=== PATIENT | female | born 1955 | race Two or more races ===

== ENCOUNTER 2020-10-21 13:47 | Inpatient (IN) | payer MEDICARE, OTHER ==
[~2020-10-21] VITALS: Ht 152.4 cm; Wt 52.2 kg
[2020-10-21] MEDS ORDERED: RISP1TAB97 PO (14:07)
[2020-10-21] MEDS ORDERED: LEVO75TA7 PO (14:07)
[2020-10-21] MEDS ORDERED: MIRT15TA7 PO (14:07)
[2020-10-21 14:30] LABS: *BILIRUBIN,URIN NEGATIVE (NEGATIVE); *BLOOD, URINE 1+ (NEGATIVE); *CLARITY,URINE SLIGHTLY CLOUDY (CLEAR); *COLOR,URINE YELLOW (YELLOW); *KETONES,URINE NEGATIVE (NEGATIVE); LEUKOCYTE ESTERASE ,URINE TRACE (NEGATIVE); NITRITE, URINE POSITIVE (NEGATIVE); UGLUCOSE NEGATIVE (NEGATIVE)
[2020-10-21 14:38] LABS: BACTERIA,URINE MANY /HPF (NONE SEEN); SQUAMOUS EPITHELIAL CELL,UR MODERATE /HPF (NONE SEEN); URINE AMORPHOUS PHOSPHATES MODERATE /HPF
[2020-10-21 14:40] LABS: *AMPHETAMINE, URINE NEGATIVE (NEGATIVE); *CANNABINOID, URINE POSITIVE (NEGATIVE); *COCCAINE, URINE NEGATIVE (NEGATIVE); *OPIATE, URINE NEGATIVE (NEGATIVE); *PHENCYCLIDINE SCREEN,URINE NEGATIVE (NEGATIVE)
[2020-10-21 14:45] LABS: BASOPHILS % (AUTO) 0.8 % (0.0-2.0); EOSINOPHILS # (AUTO) 0.1 K/uL (0.0-0.7); EOSINOPHILS % (AUTO) 1.7 % (0.0-7.0); HEMATOCRIT 36.8 % (31.2-41.9); HEMOGLOBIN 11.8 g/dL (10.9-14.3); LYMPHOCYTES # (AUTO) 1.1 K/uL (20.0-40.0); LYMPHOCYTES % (AUTO) 22.8 % (20.5-51.5); MEAN CORPUSCULAR HEMOGLOBIN 28.7 uug (24.7-32.8); MEAN CORPUSCULAR HGB CONC 32 g/dL (32.3-35.6); MEAN CORPUSCULAR VOLUME 89.3 fL (75.5-95.3); MONOCYTES # (AUTO) 0.4 K/uL (2.0-10.0); MONOCYTES % (AUTO) 8.6 % (0.0-11.0); NEUTROPHILS # (AUTO) 3.2 K/uL (1.8-8.9); NEUTROPHILS % (AUTO) 66.1 % (38.5-71.5); PLATELET COUNT (AUTO) 269 K/uL (179-408); RED BLOOD CELL COUNT(AUTO) 4.11 MIL/uL (3.63-4.92); WHITE BLOOD COUNT (AUTO) 4.8 K/uL (3.8-11.8)
[2020-10-21 14:57] LABS: ETHANOL < 3 MG/DL (0-0)
[2020-10-21 14:58] LABS: ALANINE AMINOTRANSFERASE 21 U/L (14-59); ALKALINE PHOSPHATASE 102 U/L (50-136); ASPARTATE AMINOTRANSFERASE 17 U/L (15-37); BILIRUBIN,DIRECT 0.1 mg/dL (0.0-0.2); BILIRUBIN,TOTAL 0.4 mg/dL (0.2-1.0); CARBON DIOXIDE 34 mmol/L (21-32); CHLORIDE 104 mmol/L (98-107); CREATININE 0.8 mg/dL (0.6-1.3); GLUCOSE 118 mg/dL (74-106); POTASSIUM 3.4 mmol/L (3.5-5.1); TOTAL PROTEIN, SERUM 6.9 g/dL (6.4-8.2); UREA NITROGEN, BLOOD 14 mg/dL (7-18)
[2020-10-21 14:59] LABS: ACETAMINOPHEN < 2.0 ug/mL (10-30)
[2020-10-21] MEDS ORDERED: CEFTRIAXONE 1 G in IV DEXTROSE 5% 50 ML IV ONE (15:15)
[2020-10-21 15:19] LABS: THYROID STIMULATING HORMONE 1.242 mIU/mL (0.358-3.740)
[2020-10-21] MEDS ORDERED: IV NS 1000 ML 1,000 ML IV ONE (15:30)
[2020-10-21] MEDS ORDERED: CEFTRIAXONE 1 G VIAL ONE (15:39)
[2020-10-21] MEDS ORDERED: HYDROCODONE/APAP 5-325MG TABLET PO PRN (17:30)
[2020-10-21] MEDS ORDERED: MAGNESIUM HYDROXIDE 30 ML LIQUID UDC PO PRN (17:30)
[2020-10-21] MEDS ORDERED: ONDANSETRON 4 MG/2 ML VIAL IV PRN (17:30)
[2020-10-21] MEDS ORDERED: Z GUARD REMEDY PASTE 57 GM TUBE TOP PRN (17:30)
--- NOTE | 2020-10-21 18:30 | NUR ---
Patient received on [facility], no sign of distress noted. Patient is stable. Initial vitals taken and belonging list done. Picture taken of the sacrum. Patient is on room air. Patient is Serbian speaking. Safety precautions are in place. Will endorse to the oncoming nurse.
[2020-10-21] MEDS ORDERED: POTASSIUM CHLORIDE 20 MEQ TAB.PRT.SR PO ONE (18:36)
[2020-10-21 18:40] VITALS: BP 133/77
[2020-10-21 20:00] VITALS: BP 113/64
[2020-10-21] MEDS: IV NS 1000 ML 1,000 ML IV PRN (20:30)
[2020-10-22 04:00] VITALS: BP 129/76
[2020-10-22] MEDS: ACETAMINOPHEN 325 MG TABLET PO PRN ×2 (05:09→20:35)
[2020-10-22 05:52] LABS: BASOPHILS % (AUTO) 0.8 % (0.0-2.0); EOSINOPHILS # (AUTO) 0.1 K/uL (0.0-0.7); EOSINOPHILS % (AUTO) 2.8 % (0.0-7.0); HEMATOCRIT 35.8 % (31.2-41.9); HEMOGLOBIN 11.5 g/dL (10.9-14.3); LYMPHOCYTES # (AUTO) 1.1 K/uL (20.0-40.0); LYMPHOCYTES % (AUTO) 27.2 % (20.5-51.5); MEAN CORPUSCULAR HEMOGLOBIN 28.5 uug (24.7-32.8); MEAN CORPUSCULAR HGB CONC 32 g/dL (32.3-35.6); MEAN CORPUSCULAR VOLUME 89.3 fL (75.5-95.3); MONOCYTES # (AUTO) 0.3 K/uL (2.0-10.0); MONOCYTES % (AUTO) 7.3 % (0.0-11.0); NEUTROPHILS # (AUTO) 2.4 K/uL (1.8-8.9); NEUTROPHILS % (AUTO) 61.9 % (38.5-71.5); PLATELET COUNT (AUTO) 268 K/uL (179-408); RED BLOOD CELL COUNT(AUTO) 4.02 MIL/uL (3.63-4.92); WHITE BLOOD COUNT (AUTO) 3.9 K/uL (3.8-11.8)
[2020-10-22] MEDS: LEVOTHYROXINE SODIUM 75 MCG TABLET PO SCH (06:04)
[2020-10-22 06:06] LABS: CREATININE 0.8 mg/dL (0.6-1.3); MAGNESIUM 1.8 mg/dL (1.8-2.4); PHOSPHOROUS 2.2 mg/dL (2.5-4.9); POTASSIUM 3.9 mmol/L (3.5-5.1)
--- NOTE | 2020-10-22 06:25 | NUR ---
Pt slept throughout the night. Around 0530H patient woke up and began saying profanities in Nauruan. Pt does not seem to be agitated or in distress. Patient had facial grimace and was given Tylenol. No SOB noted. Pt does not appear to be in distress at this time. IV site is intact and patient, fluids running per order. Bed is locked and in lowest position, alarm is on and call light is within reach. No other issues or concern at this time, will endorse to day shift.
[2020-10-22] MEDS: IV NS 1000 ML 1,000 ML IV PRN ×2 (09:26→23:32)
[2020-10-22 11:19] VITALS: BP 101/74
[2020-10-22] MEDS: CEFTRIAXONE 1 G in IV DEXTROSE 5% 50 ML IV SCH (15:18)
[2020-10-22] MEDS ORDERED: NEUTRA PHOS PACKET PO ONE (15:30)
[2020-10-22 15:54] VITALS: BP 106/69
--- NOTE | 2020-10-22 19:18 | NUR ---
Patient AOx1. on room air. no signs of acute distress. Patient has R hand #20 gauge IV access with NS running at 75cc/hr. Compliant with medications and care. safety and comfort measures provided. will endorse to incoming shift.
[2020-10-22 20:25] VITALS: BP 121/74
[2020-10-23 05:35] VITALS: BP 131/75
[2020-10-23] MEDS: LEVOTHYROXINE SODIUM 75 MCG TABLET PO SCH (06:21)
--- NOTE | 2020-10-23 06:36 | NUR ---
Pt slept throughout the night. Does not appear to be in distress at this time. Bed is locked and in lowest position. Call light within reach. IV site is patent. Tolerated all medications well. No other issues or concerns at this time, will endorse to day shift.
[2020-10-23 07:07] LABS: CREATININE 0.8 mg/dL (0.6-1.3); PHOSPHOROUS 3.1 mg/dL (2.5-4.9); POTASSIUM 3.8 mmol/L (3.5-5.1)
--- NOTE | 2020-10-23 07:25 | NUR ---
Received pt in bed sleeping. On room air saturating at 96% no s/s of acute distress. pt is Croatian speaking Aox1/2. No complaints of discomfort. Safety measures in place. Call light in reach. Will continue to monitor.
[2020-10-23 11:30] VITALS: BP 122/70
[2020-10-23] MEDS: CEFTRIAXONE 1 G in IV DEXTROSE 5% 50 ML IV SCH (15:54)
[2020-10-23 16:00] VITALS: BP 123/74
--- NOTE | 2020-10-23 18:53 | NUR ---
Pt is in bed resting on room air saturating at 97%. No S/S of acute distress. pt is mongolian speaking AOx2. All Meds given as ordered. Safety measures in place bed in lowest postiton call light in reach. Will endorse to oncoming nurse
[2020-10-23 20:00] VITALS: BP 133/78
--- NOTE | 2020-10-23 20:00 | NUR ---
RECEIVED PATIENT ASLEEP IN BED. EASILY AROUSABLE. A/O X2. VS WNL. H/L INTACT AND PATENT, NOTED TO RIGHT HAND. DENIES PAIN OR DISCOMFORT. NO RESP. DISTRESS NOTED. BED ALARM ON. CALL LIGHT IN REACH. ALL NEEDS ATTENDED. WILL CONTINUE TO MONITOR AND ASSESS.
[2020-10-24 00:03] VITALS: BP 120/65
--- NOTE | 2020-10-24 05:57 | NUR ---
PATIENT AWAKE IN BED. SLEPT WELL THROUGHOUT THE NIGHT. VS WNL. CALL LIGHT IN REACH. ALL NEEDS ATTENDED. WILL CONTINUE TO MONITOR AND ASSESS.
[2020-10-24] MEDS: LEVOTHYROXINE SODIUM 75 MCG TABLET PO SCH (06:15)
--- NOTE | 2020-10-24 07:30 | NUR ---
Received patient in bed awake, alert and oriented times 1. No sign of distress noted. Patient is Grenadian speaking. Patient is saturating well on room air. Safety precautions are in place. Will endorse to the next shift.
[2020-10-24 11:30] VITALS: BP 117/68
[2020-10-24] MEDS ORDERED: CEFT1VIA15 IV (13:19)
[2020-10-24] MEDS ORDERED: MAGN400O6 PO (13:19)
[2020-10-24] MEDS ORDERED: ACET325T53 PO (13:19)
[2020-10-24] MEDS ORDERED: ACID1TAB4 PO (13:19)
[2020-10-24] MEDS ORDERED: MULT-594 PO (13:19)
[2020-10-24 15:51] VITALS: BP 101/54
[2020-10-24] MEDS: CEFTRIAXONE 1 G in IV DEXTROSE 5% 50 ML IV SCH (16:00)
--- NOTE | 2020-10-24 18:52 | NUR ---
Patient discharge to Center at [facility]. No sign of distress noted. ID band removed. left IV in because patient has to continue Rocephin antibiotics. All paperwork sent with patients including belongings. All medications given as ordered.
== END 2020-10-24 18:50 | DRG 689 ==
LOC: ER 13:53 → MEDSURG3 18:19
PROVIDERS: ADMIT Internal Medicine; ATTEND Internal Medicine
DX: N39.0 Urinary tract infection, site not specified (principal); G92 Toxic encephalopathy; E86.0 Dehydration; E87.6 Hypokalemia; E03.9 Hypothyroidism, unspecified; F03.90 Unspecified dementia, unspecified severity, without behavioral disturbance, psychotic disturbance, mood disturbance, and anxiety; F20.9 Schizophrenia, unspecified; R62.7 Adult failure to thrive; F29 Unspecified psychosis not due to a substance or known physiological condition; R53.1 Weakness; B96.89 Other specified bacterial agents as the cause of diseases classified elsewhere; Z20.822 Contact with and (suspected) exposure to COVID-19; Z68.22 Body mass index [BMI] 22.0-22.9, adult
CPT/HCPCS: 36415; 70030-TC; 71045; 83605; 83735; 84100; 84443; 85025; 87077; 87086; 93005; A4663; G0378; G0480; J0696; J7030; J7060

== ENCOUNTER 2021-07-19 17:20 | Inpatient (IN) | payer MEDICARE, OTHER ==
[~2021-07-19] VITALS: Ht 152.4 cm; Wt 54.4 kg
[~2021-07-19 17:20] MED LIST: ACET325T53 PO; ACID1TAB4 PO; CEFT1VIA15 IV; LEVO75TA7 PO; MAGN400O6 PO; MIRT-93 PO; MULT-594 PO; RISP1TAB97 PO
--- NOTE | 2021-07-19 18:10 | NUR ---
PT IS IN ROOM #1A. DR CHEN EVALUATED THE PT.
[2021-07-19] MEDS ORDERED: GABA-532 PO (18:13)
[2021-07-19] MEDS ORDERED: PSYLLIUM POWDER PO (18:13)
[2021-07-19] MEDS ORDERED: NA P133E RC (18:13)
[2021-07-19] MEDS ORDERED: LORA-258 PO (18:13)
[2021-07-19] MEDS ORDERED: MELO7.5T12 PO (18:13)
[2021-07-19] MEDS ORDERED: LACT1TAB12 PO (18:13)
[2021-07-19] MEDS ORDERED: POLY17PO4 PO (18:13)
[2021-07-19] MEDS ORDERED: LEVO75TA7 PO (18:13)
[2021-07-19] MEDS ORDERED: MAG355OR18 PO (18:13)
[2021-07-19] MEDS ORDERED: MELA3TAB41 PO (18:13)
[2021-07-19] MEDS ORDERED: DOCU100C36 PO (18:13)
[2021-07-19] MEDS ORDERED: DIVA250T4 PO (18:13)
[2021-07-19] MEDS ORDERED: ATOR10TA PO (18:13)
[2021-07-19] MEDS ORDERED: IV NORMAL SALINE 1000 ML BAG IV ONE (19:00)
[2021-07-19 19:16] LABS: HEMATOCRIT 34.2 % (31.2-41.9); MEAN CORPUSCULAR HEMOGLOBIN 30.8 uug (24.7-32.8); MEAN CORPUSCULAR VOLUME 91.3 fL (75.5-95.3); PLATELET COUNT (AUTO) 199 K/uL (179-408)
[2021-07-19 19:22] LABS: CREATININE 0.9 mg/dL (0.6-1.3); POTASSIUM 3.5 mmol/L (3.5-5.1)
[2021-07-19 19:28] LABS: BILIRUBIN,DIRECT 0.1 mg/dL (0.0-0.2); BILIRUBIN,TOTAL 0.3 mg/dL (0.2-1.0); TOTAL PROTEIN, SERUM 7.3 g/dL (6.4-8.2)
[2021-07-19 19:40] LABS: LYMPHOCYTES % (MANUAL) 14 % (20-40); MONOCYTES % (MANUAL) 17 % (2-10); NEUTROPHILS % (MANUAL) 69 % (42-75)
--- NOTE | 2021-07-19 20:48 | NUR ---
covid positive results lab has called. call to [employer] for Dr. Jason.
--- NOTE | 2021-07-19 20:58 | NUR ---
call placed to [facility] weatherization crew leader for Dr. Jason. Dr. Dodson is paged.
[2021-07-19] MEDS ORDERED: IV NS 1000 ML 1,000 ML IV ONE (21:00)
--- NOTE | 2021-07-19 21:08 | NUR ---
Dr. Dodson called back for Dr. Jason.
[2021-07-19] MEDS ORDERED: DEXAMETHASONE SOD PHOSPHATE 4 MG INJ IM ONE (21:15)
[2021-07-19] MEDS ORDERED: FLEET ENEMA 133 ML BOTTLE RC PRN (21:30)
[2021-07-19] MEDS ORDERED: DEXAMETHASONE SOD PHOSPHATE 4 MG INJ IV ONE (21:30)
[2021-07-19] MEDS ORDERED: ACETAMINOPHEN 325 MG TABLET-SA PATIENTS-PAIN ONLY PO PRN (21:30)
[2021-07-19] MEDS ORDERED: MAGNESIUM HYDROXIDE 30 ML LIQUID UDC PO PRN (21:30)
[2021-07-19] MEDS ORDERED: DEXAMETHASONE SOD PHOSPHATE 4 MG INJ ONE (21:38)
[2021-07-19] MEDS ORDERED: ALBUTEROL SULFATE 8 GM HFA.AER.AD IH PRN (21:45)
[2021-07-19] MEDS ORDERED: ONDANSETRON 4 MG/2 ML VIAL IV PRN (21:45)
[2021-07-19] MEDS: CEFTRIAXONE 1 G in IV DEXTROSE 5% 50 ML IV SCH (23:10)
[2021-07-19] MEDS ORDERED: CEFTRIAXONE /D5W 50ML IVPB **ER PYXIS IV ONE (23:11)
--- NOTE | 2021-07-20 00:29 | NUR ---
pt has been yelling out confused, yelling what appears to be curse words in Pashto. Attempted to calm pateint reorient provided food and drink to the patient.
[2021-07-20] MEDS ORDERED: diphenhydrAMINE 50 MG/1 ML VIAL IV ONE (00:30)
[2021-07-20] MEDS ORDERED: HALOPERIDOL LACTATE 5 MG/1 ML VIAL IV ONE (00:30)
[2021-07-20] MEDS ORDERED: HALOPERIDOL LACTATE 5 MG/1 ML VIAL ONE (00:40)
[2021-07-20] MEDS ORDERED: diphenhydrAMINE 50 MG/1 ML VIAL ONE (00:40)
--- NOTE | 2021-07-20 01:03 | NUR ---
pt is more calm and arousalbe pt previously receive haldol and benadryl for agitation.
--- NOTE | 2021-07-20 02:51 | NUR ---
pt placed in hospital bed. torrez cath inserted to obtain urine sample.
[2021-07-20 03:22] LABS: *BILIRUBIN,URIN NEGATIVE (NEGATIVE); *BLOOD, URINE 2+ (NEGATIVE); *CLARITY,URINE CLEAR (CLEAR); *COLOR,URINE YELLOW (YELLOW); *KETONES,URINE NEGATIVE (NEGATIVE); *UROBILINOGEN,URINE 0.2 E.U./dl (NORMAL); LEUKOCYTE ESTERASE ,URINE NEGATIVE (NEGATIVE); NITRITE, URINE NEGATIVE (NEGATIVE); PH,URINE 6.5 (5.0-8.0); UGLUCOSE NEGATIVE (NEGATIVE)
[2021-07-20 03:34] LABS: BACTERIA,URINE NONE SEEN /HPF (NONE SEEN); SQUAMOUS EPITHELIAL CELL,UR FEW /HPF (NONE SEEN); WBC,URINE 0-3 /HPF (0-3)
--- NOTE | 2021-07-20 04:42 | NUR ---
call placed to [facility] regarding blood pressure low 90's, pt arouses easily denies pain.
--- NOTE | 2021-07-20 04:52 | NUR ---
New order from Radha ARZATE for ivf ns at 75 ml per hour.
[2021-07-20] MEDS: IV NS 1000 ML 1,000 ML IV PRN ×2 (05:06→17:40)
--- NOTE | 2021-07-20 07:30 | NUR ---
PATIENT RECEIVED IN BED NO S/S ANY DISTRESS.
[2021-07-20] MEDS: PANTOPRAZOLE SODIUM 40 MG TABLET.DR PO SCH (07:43)
[2021-07-20] MEDS: LEVOTHYROXINE SODIUM 75 MCG TABLET PO SCH (07:43)
[2021-07-20] MEDS ORDERED: LEVOTHYROXINE SODIUM 75 MCG TABLET ONE (07:46)
[2021-07-20] MEDS ORDERED: PANTOPRAZOLE SODIUM 40 MG TABLET.DR PO ONE (07:47)
[2021-07-20] MEDS: CULTURELLE CAPSULE PO SCH (08:18)
[2021-07-20] MEDS: MULTIVITAMINS,THERAPEUTIC TABLET PO SCH (08:18)
[2021-07-20] MEDS: MELOXICAM 7.5 MG TABLET PO SCH (08:18)
[2021-07-20] MEDS: DIVALPROEX 250 MG TABLET.DR PO SCH ×3 (08:27→16:33)
[2021-07-20] MEDS: MIRALAX 17 GM POWD.PACK PO SCH (08:27)
[2021-07-20] MEDS: GABAPENTIN 300 MG CAPSULE PO SCH ×3 (08:27→16:33)
[2021-07-20] MEDS ORDERED: ENOXAPARIN SODIUM 40 MG/0.4 ML DISP.SYRIN SQ ONE (08:32)
[2021-07-20] MEDS ORDERED: DIVALPROEX 250 MG TABLET.DR PO ONE ×3 (08:32→16:38)
[2021-07-20] MEDS ORDERED: DEXAMETHASONE SOD PHOSPHATE 10 MG INJ ONE (08:33)
[2021-07-20] MEDS ORDERED: GABAPENTIN 300 MG CAPSULE ONE ×3 (08:33→16:38)
[2021-07-20] MEDS ORDERED: MIRALAX 17 GM POWD.PACK ONE (08:33)
[2021-07-20] MEDS: ENOXAPARIN SODIUM 40 MG/0.4 ML DISP.SYRIN SQ SCH (08:48)
[2021-07-20] MEDS: DEXAMETHASONE SOD PHOSPHATE 4 MG INJ IV SCH (08:57)
--- NOTE | 2021-07-20 09:30 | NUR ---
PATIENT ASSISTED WITH BREAKFAST 100%.
--- NOTE | 2021-07-20 10:30 | NUR ---
PATIENT IN BED ASLEEP.
[2021-07-20 12:15] LABS: HEMATOCRIT 31.8 % (31.2-41.9); MEAN CORPUSCULAR HEMOGLOBIN 30.9 uug (24.7-32.8); MEAN CORPUSCULAR VOLUME 92.4 fL (75.5-95.3); PLATELET COUNT (AUTO) 178 K/uL (179-408)
[2021-07-20 12:50] LABS: THYROID STIMULATING HORMONE 0.19 mIU/mL (0.358-3.740)
[2021-07-20 12:56] LABS: BILIRUBIN,TOTAL 0.2 mg/dL (0.2-1.0); CREATININE 0.8 mg/dL (0.6-1.3); MAGNESIUM 2.2 mg/dL (1.8-2.4); PHOSPHOROUS 2.9 mg/dL (2.5-4.9); POTASSIUM 4.1 mmol/L (3.5-5.1); TOTAL PROTEIN, SERUM 6.6 g/dL (6.4-8.2)
[2021-07-20] MEDS: LORAZEPAM 0.5 MG TABLET PO PRN (13:43)
[2021-07-20] MEDS ORDERED: LORAZEPAM 0.5 MG TABLET ONE (13:51)
[2021-07-20] MEDS: ZIPRASIDONE MESYLATE 20 MG VIAL IM PRN (14:10)
[2021-07-20] MEDS ORDERED: ZIPRASIDONE MESYLATE 20 MG VIAL IM ONE (14:19)
--- NOTE | 2021-07-20 16:09 | NUR ---
PATIENT MOVED TO ROOM 02A.
[2021-07-20] MEDS ORDERED: DOCUSATE SODIUM 100 MG CAPSULE PO ONE (21:58)
[2021-07-20] MEDS ORDERED: MELATONIN 3 MG TABLET ONE (21:59)
[2021-07-20] MEDS ORDERED: CEFTRIAXONE /D5W 50ML IVPB **ER PYXIS IV ONE (22:11)
[2021-07-20] MEDS: MELATONIN 3 MG TABLET PO SCH (22:36)
[2021-07-20] MEDS: DOCUSATE SODIUM 100 MG CAPSULE PO SCH (22:36)
[2021-07-20] MEDS: ATORVASTATIN 10 MG TABLET PO SCH (22:36)
[2021-07-20] MEDS: CEFTRIAXONE 1 G in IV DEXTROSE 5% 50 ML IV SCH (22:36)
[2021-07-21] MEDS: LEVOTHYROXINE SODIUM 75 MCG TABLET PO SCH (07:00)
[2021-07-21] MEDS: PANTOPRAZOLE SODIUM 40 MG TABLET.DR PO SCH (07:00)
--- NOTE | 2021-07-21 08:00 | NUR ---
Patient received in bed no s/s any distress covid 19 precautions done.
[2021-07-21] MEDS ORDERED: PANTOPRAZOLE SODIUM 40 MG TABLET.DR PO ONE (08:23)
[2021-07-21] MEDS ORDERED: LEVOTHYROXINE SODIUM 75 MCG TABLET ONE (08:23)
[2021-07-21] MEDS: MELOXICAM 7.5 MG TABLET PO SCH (08:24)
[2021-07-21] MEDS: CULTURELLE CAPSULE PO SCH (08:24)
[2021-07-21] MEDS: DIVALPROEX 250 MG TABLET.DR PO SCH ×3 (08:24→17:24)
[2021-07-21] MEDS: GABAPENTIN 300 MG CAPSULE PO SCH ×3 (08:24→17:25)
[2021-07-21] MEDS: MIRALAX 17 GM POWD.PACK PO SCH (08:24)
[2021-07-21] MEDS: MULTIVITAMINS,THERAPEUTIC TABLET PO SCH (08:24)
[2021-07-21] MEDS: ENOXAPARIN SODIUM 40 MG/0.4 ML DISP.SYRIN SQ SCH (08:25)
[2021-07-21] MEDS ORDERED: ENOXAPARIN SODIUM 40 MG/0.4 ML DISP.SYRIN SQ ONE (08:27)
[2021-07-21] MEDS ORDERED: DIVALPROEX 250 MG TABLET.DR PO ONE ×3 (08:28→17:32)
[2021-07-21] MEDS ORDERED: GABAPENTIN 300 MG CAPSULE ONE ×3 (08:28→17:32)
[2021-07-21] MEDS ORDERED: MIRALAX 17 GM POWD.PACK ONE (08:28)
[2021-07-21] MEDS: IV NS 1000 ML 1,000 ML IV PRN ×2 (09:00→22:00)
[2021-07-21] MEDS ORDERED: DEXAMETHASONE SOD PHOSPHATE 10 MG INJ ONE (09:06)
[2021-07-21] MEDS: DEXAMETHASONE SOD PHOSPHATE 4 MG INJ IV SCH (09:07)
--- NOTE | 2021-07-21 12:00 | NUR ---
Patient is resting comfortably in bed with eyes closed.
--- NOTE | 2021-07-21 13:00 | NUR ---
Patient repositioned cleaned x1 small BM.
--- NOTE | 2021-07-21 17:30 | NUR ---
Patient assisted with meal 80% aspiration precautions done.
[2021-07-21 18:47] VITALS: BP 112/67
--- NOTE | 2021-07-21 19:03 | NUR ---
ADMISSION NOTE: Patient admitted from ER via hospital bed at 1845 accompanied by nursing staff to room 318 as Tele patient. Patient is alert and oriented x2. Patient has peripheral IV in right AC 20 g which is infusing NS. IV site is patent and intact. Patient's oxygen saturation 96% on RA. Patient denies SOB, chest pain, difficulty breathing, and cough. Noted with torrez catheter, draining clear yellow urine. Skin is intact. Admission endorsed to oncoming shift.
[2021-07-21 20:57] VITALS: BP 112/62
[2021-07-21] MEDS: DOCUSATE SODIUM 100 MG CAPSULE PO SCH (21:05)
[2021-07-21] MEDS: ATORVASTATIN 10 MG TABLET PO SCH (21:05)
[2021-07-21] MEDS: MELATONIN 3 MG TABLET PO SCH (21:05)
[2021-07-21] MEDS ORDERED: CEFTRIAXONE 1 G VIAL ONE (22:06)
[2021-07-21] MEDS: CEFTRIAXONE 1 G in IV DEXTROSE 5% 50 ML IV SCH (22:15)
[2021-07-22 00:59] VITALS: BP 100/50
[2021-07-22 04:50] VITALS: BP 107/55
[2021-07-22] MEDS: PANTOPRAZOLE SODIUM 40 MG TABLET.DR PO SCH (06:12)
[2021-07-22] MEDS: LEVOTHYROXINE SODIUM 50 MCG TABLET PO SCH (06:12)
--- NOTE | 2021-07-22 06:30 | NUR ---
Patient slept intermittently .ALert x2 able to follow simple commands.No s/s of distress noted.Iv on right Ac patent and intact in Right AC with IV infusing well.Adm.Iv ATB no A/r noted.f/c draining well.NSR on tele.Call light with in reach.Patient on isolation .Will endorse to oncoming shift.
[2021-07-22] MEDS: ACETAMINOPHEN 325 MG TABLET PO PRN ×2 (06:37→17:26)
--- NOTE | 2021-07-22 08:00 | NUR ---
Received alert and oriented x1. On 2 lpm nasal cannula o2 sat 96%. No s/sx of pain or discomfort. No sob noted. Iv intact and patent hydration ongoing. Dunaway catheter intact draining yellow urine. No hematuria noted. Comfortable. Call light in reach. Will cont to monitor.
[2021-07-22] MEDS: CHOLECALCIFEROL 1,000 UNIT TABLET PO SCH (09:07)
[2021-07-22] MEDS: DIVALPROEX 250 MG TABLET.DR PO SCH ×3 (09:08→16:45)
[2021-07-22] MEDS: MULTIVITAMINS,THERAPEUTIC TABLET PO SCH (09:08)
[2021-07-22] MEDS: GABAPENTIN 300 MG CAPSULE PO SCH ×3 (09:08→16:45)
[2021-07-22] MEDS: MELOXICAM 7.5 MG TABLET PO SCH (09:08)
[2021-07-22] MEDS: CULTURELLE CAPSULE PO SCH (09:08)
[2021-07-22] MEDS: ASCORBIC ACID 500 MG TABLET PO SCH (09:08)
[2021-07-22] MEDS: DEXAMETHASONE SOD PHOSPHATE 4 MG INJ IV SCH (09:08)
[2021-07-22] MEDS: MIRALAX 17 GM POWD.PACK PO SCH (09:08)
[2021-07-22] MEDS: ENOXAPARIN SODIUM 40 MG/0.4 ML DISP.SYRIN SQ SCH (09:26)
[2021-07-22 12:00] VITALS: BP 112/63
[2021-07-22] MEDS: IV NS 1000 ML 1,000 ML IV PRN (12:04)
[2021-07-22] MEDS: LORAZEPAM 0.5 MG TABLET PO PRN (14:59)
[2021-07-22] MEDS ORDERED: ALBUTEROL SULFATE 8 GM HFA.AER.AD IH PRN (15:30)
[2021-07-22] MEDS ORDERED: ASCORBIC ACID 500 MG TABLET PO SCH (15:45)
[2021-07-22] MEDS ORDERED: CHOLECALCIFEROL 1,000 UNIT TABLET PO SCH (15:45)
[2021-07-22 16:00] VITALS: BP 104/63
[2021-07-22] MEDS: AZITHROMYCIN 250 MG TABLET PO SCH (16:45)
--- NOTE | 2021-07-22 17:01 | NUR ---
pt with episodes of agitation and yelling. ativan given but only somewhat effective. pt is changed and repositioned, provided a calm environment. needs anticipated. call light is in reach.
[2021-07-22] MEDS: ZIPRASIDONE MESYLATE 20 MG VIAL IM PRN (18:11)
--- NOTE | 2021-07-22 18:30 | NUR ---
pt still yelling. IM geodon given. Tylenol given for 99.3. Rechecked temp and noted T99. Remains on 2 Lpm tolerated o2 sat 96%. No sob noted. FC intact no hematuria. Will continue to monitor.
--- NOTE | 2021-07-22 19:00 | NUR ---
Received patient lying in bed, AAOX2, nepalese speaking with limited Macanese. Reoriented patient accordingly. On 2L O2 via NC, saturating at 97% . No s/sx of pain or discomfort. No sob noted. IVF on R AC, 20 gauge, infusing 0.9% NS at 75cc/hr. With Dunaway catheter intact draining clear yellow urine. No hematuria noted. Safety measures initiated and call light button within reach.
[2021-07-22 20:24] VITALS: BP 109/57
[2021-07-22] MEDS: ATORVASTATIN 10 MG TABLET PO SCH (21:01)
[2021-07-22] MEDS: MELATONIN 3 MG TABLET PO SCH (21:01)
[2021-07-22] MEDS: DOCUSATE SODIUM 100 MG CAPSULE PO SCH (21:01)
[2021-07-23] MEDS: IV NS 1000 ML 1,000 ML IV PRN (00:53)
[2021-07-23 04:21] VITALS: BP 121/69
[2021-07-23] MEDS: ACETAMINOPHEN 325 MG TABLET PO PRN (04:31)
[2021-07-23] MEDS: LEVOTHYROXINE SODIUM 50 MCG TABLET PO SCH (06:25)
[2021-07-23] MEDS: PANTOPRAZOLE SODIUM 40 MG TABLET.DR PO SCH (06:32)
--- NOTE | 2021-07-23 07:05 | NUR ---
Patient slept through the night with no complaints. AAOX2, with periods of confusion and restlessness. Compliant with medications. Titrated O2 down to 1L, saturating at 98%. IVF infusing well. Dunaway catheter intact. Oral care done. Patient's temperature was slightly elevated, tylenol 325mg (2tablets), given and tolerated well. Safety measures maintained. Will endorse to dayshift.
[2021-07-23 07:40] LABS: HEMATOCRIT 33.4 % (31.2-41.9); MEAN CORPUSCULAR HEMOGLOBIN 30.2 uug (24.7-32.8); MEAN CORPUSCULAR VOLUME 91.9 fL (75.5-95.3); PLATELET COUNT (AUTO) 194 K/uL (179-408)
[2021-07-23 08:12] LABS: BILIRUBIN,TOTAL 0.2 mg/dL (0.2-1.0); CREATININE 0.7 mg/dL (0.6-1.3); PHOSPHOROUS 2.8 mg/dL (2.5-4.9); POTASSIUM 3.7 mmol/L (3.5-5.1); TOTAL PROTEIN, SERUM 6.5 g/dL (6.4-8.2)
[2021-07-23] MEDS: DEXAMETHASONE SOD PHOSPHATE 4 MG INJ IV SCH (09:01)
[2021-07-23] MEDS: CHOLECALCIFEROL 1,000 UNIT TABLET PO SCH (09:02)
[2021-07-23] MEDS: ASCORBIC ACID 500 MG TABLET PO SCH (09:02)
[2021-07-23] MEDS: MIRALAX 17 GM POWD.PACK PO SCH (09:02)
[2021-07-23] MEDS: MELOXICAM 7.5 MG TABLET PO SCH (09:03)
[2021-07-23] MEDS: CULTURELLE CAPSULE PO SCH (09:03)
[2021-07-23] MEDS: MULTIVITAMINS,THERAPEUTIC TABLET PO SCH (09:03)
[2021-07-23] MEDS: DIVALPROEX 250 MG TABLET.DR PO SCH ×3 (09:03→16:47)
[2021-07-23] MEDS: GABAPENTIN 300 MG CAPSULE PO SCH ×3 (09:04→16:47)
[2021-07-23] MEDS: ENOXAPARIN SODIUM 40 MG/0.4 ML DISP.SYRIN SQ SCH (09:05)
[2021-07-23 11:36] VITALS: BP 131/76
[2021-07-23] MEDS ORDERED: PANT40TA49 PO (16:00)
[2021-07-23] MEDS ORDERED: ALBU8HFA4 IH (16:00)
[2021-07-23] MEDS ORDERED: AZIT250T PO (16:00)
[2021-07-23] MEDS ORDERED: METH4TAB3 PO (16:00)
[2021-07-23] MEDS ORDERED: ASCO500T21 PO (16:00)
[2021-07-23] MEDS ORDERED: LEVO50TA8 PO (16:00)
[2021-07-23] MEDS ORDERED: CHOL100062 PO (16:00)
[2021-07-23 16:07] VITALS: BP 113/67
[2021-07-23] MEDS: AZITHROMYCIN 250 MG TABLET PO SCH (16:47)
--- NOTE | 2021-07-23 19:30 | NUR ---
PATIENT PICKED UP FOR DISCHARGE TO [facility] BY [facility] WITH ALL HER PERSONAL BELONGINGS CALLED THE [facility] UNABLE TO GIVE REPORT WAS PLACED ON HOLD IN EXCESS OF 5 MINUTES REPORT GIVEN TO THE AMBULANCE TECHS AT THIS TIME
[2021-07-23 19:58] LABS: BAND % (MANUAL) 1 % (0-10); LYMPHOCYTES % (MANUAL) 29 % (20-40); MONOCYTES % (MANUAL) 11 % (2-10); NEUTROPHILS % (MANUAL) 59 % (42-75)
[2021-07-23 20:00] VITALS: BP 130/80
== END 2021-07-23 20:05 | DRG 871 ==
LOC: ER 17:22 → TRANSITION 21:10 → TELE3 07-21 18:24 → MEDSURG3 07-22 17:46
PROVIDERS: ADMIT Internal Medicine; ATTEND Internal Medicine
DX: A41.89 Other specified sepsis (principal); U07.1 COVID-19; J12.82 Pneumonia due to coronavirus disease 2019; G92.8 Other toxic encephalopathy; D68.59 Other primary thrombophilia; E03.9 Hypothyroidism, unspecified; G62.9 Polyneuropathy, unspecified; I25.10 Atherosclerotic heart disease of native coronary artery without angina pectoris; E78.5 Hyperlipidemia, unspecified; J45.909 Unspecified asthma, uncomplicated; Z74.09 Other reduced mobility; F20.9 Schizophrenia, unspecified; M19.90 Unspecified osteoarthritis, unspecified site; F32.A Depression, unspecified
CPT/HCPCS: 36415; 70030-TC; 71045; 80164; 83605; 83735; 84100; 84443; 85025; 85730; 87040; 87086; 93005; G0378; J0696; J1100; J1200; J1630; J1650; J2405; J3486; J3490; J3535; J7030; J7060; Q0144

== ENCOUNTER 2022-10-17 19:44 | Inpatient (IN) | payer MEDICARE, OTHER ==
[~2022-10-17] VITALS: Ht 152.4 cm; Wt 76.2 kg
[~2022-10-17 19:44] MED LIST changes: -ACID1TAB4 PO; +ALBU8HFA4 IH; +ASCO500T21 PO; +ATOR10TA PO; +AZIT250T PO; -CEFT1VIA15 IV; +CHOL100062 PO; +DIVA250T4 PO; +DOCU100C36 PO; +GABA-532 PO; +LACT1TAB12 PO; +LEVO50TA8 PO; -LEVO75TA7 PO; +LORA-258 PO; +MAG355OR18 PO; +MELA3TAB41 PO; +MELO7.5T12 PO; +METH4TAB3 PO; -MIRT-93 PO; +NA P133E RC; +PANT40TA49 PO; +POLY17PO4 PO; +PSYLLIUM POWDER PO; -RISP1TAB97 PO
[2022-10-17] MEDS ORDERED: IV NORMAL SALINE 500 ML BAG IV ONE (20:15)
[2022-10-17 20:27] LABS: HEMATOCRIT 40.1 % (31.2-41.9); MEAN CORPUSCULAR HEMOGLOBIN 29.2 uug (24.7-32.8); MEAN CORPUSCULAR VOLUME 89.7 fL (75.5-95.3); PLATELET COUNT (AUTO) 244 K/uL (179-408)
[2022-10-17 20:43] LABS: BILIRUBIN,DIRECT 0.1 mg/dL (0.0-0.2); BILIRUBIN,TOTAL 0.2 mg/dL (0.2-1.0); CREATININE 0.9 mg/dL (0.6-1.3); POTASSIUM 4.3 mmol/L (3.5-5.1); TOTAL PROTEIN, SERUM 7.4 g/dL (6.4-8.2)
[2022-10-17 21:16] LABS: *BILIRUBIN,URIN NEGATIVE (NEGATIVE); *BLOOD, URINE 2+ (NEGATIVE); *CLARITY,URINE CLEAR (CLEAR); *COLOR,URINE YELLOW (YELLOW); *KETONES,URINE TRACE (NEGATIVE); *UROBILINOGEN,URINE 0.2 E.U./dl (NORMAL); LEUKOCYTE ESTERASE ,URINE 1+ (NEGATIVE); NITRITE, URINE POSITIVE (NEGATIVE); PH,URINE 5.5 (5.0-8.0); UGLUCOSE NEGATIVE (NEGATIVE)
[2022-10-17 21:17] LABS: BACTERIA,URINE FEW /HPF (NONE SEEN)
[2022-10-17] MEDS ORDERED: IOHEXOL 300MG/ML 100 ML INFUS..BTL ONE (21:18)
[2022-10-17] MEDS ORDERED: SWABABLE VALVE TRANSFER SET EA MC ONE (21:18)
[2022-10-17] MEDS ORDERED: IV NORMAL SALINE 250 ML IV ONE (21:18)
[2022-10-17] MEDS ORDERED: CEFTRIAXONE 1 G in IV DEXTROSE 5% 50 ML IV ONE (21:30)
--- NOTE | 2022-10-17 21:47 | NUR ---
Called third floor and received room number #302 for pt.
[2022-10-17] MEDS ORDERED: CEFTRIAXONE /D5W 50ML IVPB **ER PYXIS IV ONE ×2 (21:57→22:36)
[2022-10-17] MEDS ORDERED: ACETAMINOPHEN 325 MG TABLET PO PRN (22:15)
[2022-10-17] MEDS ORDERED: ONDANSETRON 4 MG/2 ML VIAL IV PRN (22:15)
[2022-10-17] MEDS ORDERED: HYDROCODONE/APAP 5-325MG TABLET PO PRN (22:15)
[2022-10-17] MEDS ORDERED: TEMAZEPAM 15 MG CAPSULE PO PRN (22:15)
--- NOTE | 2022-10-17 22:57 | NUR ---
Called third floor and gave report to Madison SAAVEDRA.
--- NOTE | 2022-10-17 23:35 | NUR ---
Pt was transferred via [place]. KERI Wallace aware of pt arrival.
--- NOTE | 2022-10-17 23:35 | NUR ---
received patient from ER via gurney came with DYLAN SAAVEDRA for medical -surgical admission dx: uti,abdominal pain ,adnexal mass and generalized weakness dr: KAYLAH mejia MD from [facility] .patient Chadian speaking but able to understand simple [place] Citizen and able to follow commands .no respiratory distress noted breathing even and unlabored on 02 nasal cannula at 2 l/min .incontinent of bladder and bowel patient with pull ups .upper bilateral extremities moderate weakness and lower bilateral extremities severe weakness unable to stand up bilateral lower leg + edema noted oriented with call light and room advised patient to call for assistance and not to get oob alone .
[2022-10-17 23:42] VITALS: BP 131/78
[2022-10-18 03:30] VITALS: BP 95/54
[2022-10-18] MEDS: PANTOPRAZOLE SODIUM 40 MG TABLET.DR PO SCH (06:17)
[2022-10-18 06:46] LABS: HEMATOCRIT 37.7 % (31.2-41.9); MEAN CORPUSCULAR HEMOGLOBIN 29.6 uug (24.7-32.8); MEAN CORPUSCULAR VOLUME 90.5 fL (75.5-95.3); PLATELET COUNT (AUTO) 222 K/uL (179-408)
[2022-10-18 07:42] LABS: BILIRUBIN,TOTAL 0.1 mg/dL (0.2-1.0); CREATININE 0.7 mg/dL (0.6-1.3); PHOSPHOROUS 3.9 mg/dL (2.5-4.9); POTASSIUM 4.2 mmol/L (3.5-5.1); TOTAL PROTEIN, SERUM 6.7 g/dL (6.4-8.2)
[2022-10-18 07:52] LABS: THYROID STIMULATING HORMONE 3.444 mIU/mL (0.358-3.740)
[2022-10-18] MEDS ORDERED: CEFTRIAXONE 1 G in IV DEXTROSE 5% 50 ML IV SCH (09:00)
[2022-10-18 12:00] VITALS: BP 132/72
[2022-10-18] MEDS ORDERED: GABA300C PO (13:27)
[2022-10-18] MEDS: LORAZEPAM 2 MG/1 ML VIAL IV PRN (14:05)
[2022-10-18] MEDS ORDERED: DIVA125T2 PO (14:43)
[2022-10-18] MEDS ORDERED: GEMTESA 75 MG PO (14:51)
[2022-10-18 16:00] VITALS: BP 120/65
[2022-10-18] MEDS: DIVALPROEX 250 MG TABLET.DR PO SCH (17:11)
[2022-10-18] MEDS: GABAPENTIN 300 MG CAPSULE PO SCH (17:12)
--- NOTE | 2022-10-18 17:31 | NUR ---
Pt. noted to be stable during the shift. Compliance with the care given. No c/o pain. Ghanaian speaking. Able to go to bathroom with assist. Call light within reach. All need attended and met. Will keep monitoring the patient.
[2022-10-18 19:52] VITALS: BP 129/77
[2022-10-18] MEDS ORDERED: DOCUSATE SODIUM 250 MG CAPSULE PO SCH (21:00)
[2022-10-18] MEDS: CEFTRIAXONE 1 G in IV DEXTROSE 5% 50 ML IV SCH (21:09)
[2022-10-18] MEDS: ATORVASTATIN 10 MG TABLET PO SCH (21:09)
[2022-10-18] MEDS: MELATONIN 3 MG TABLET PO SCH (21:09)
[2022-10-19] MEDS: LORAZEPAM 2 MG/1 ML VIAL IV PRN ×3 (01:04→18:00)
[2022-10-19 05:00] VITALS: BP 106/73
[2022-10-19] MEDS: LEVOTHYROXINE SODIUM 50 MCG TABLET PO SCH (06:28)
[2022-10-19] MEDS: PANTOPRAZOLE SODIUM 40 MG TABLET.DR PO SCH (06:28)
--- NOTE | 2022-10-19 07:30 | NUR ---
REPORT GIVEN TO KERI FOLEY
[2022-10-19] MEDS ORDERED: LORAZEPAM 2 MG/1 ML VIAL IV ONE (09:00)
[2022-10-19] MEDS: GABAPENTIN 300 MG CAPSULE PO SCH ×3 (09:15→17:25)
[2022-10-19] MEDS: DIVALPROEX 125 MG TABLET.DR PO SCH (09:15)
[2022-10-19] MEDS: MELOXICAM 7.5 MG TABLET PO SCH (09:15)
[2022-10-19] MEDS: DIVALPROEX 250 MG TABLET.DR PO SCH ×2 (09:15→17:25)
[2022-10-19 11:50] VITALS: BP 108/68
[2022-10-19 11:51] VITALS: BP 108/68
[2022-10-19 16:33] VITALS: BP 104/58
--- NOTE | 2022-10-19 18:23 | NUR ---
Pt had an uneventful day. Vital signs are stable. Ativan given for crying/agitation. Pt slept the afternoon. Remains on ABT. Daughter wants to speak with MD. [employer] phone number given per request. Will continue pts plan of care.
--- NOTE | 2022-10-19 20:00 | NUR ---
NSG:Received patient lying in bed,puerto rican speaking. Dx of uti,abdominal pain ,adnexal mass and generalized weakness.no respiratory distress noted breathing even and unlabored on 02 nasal cannula at 2 l/min .incontinent of bladder and bowel patient with pull ups .upper bilateral extremities moderate weakness and lower bilateral extremities severe weakness unable to stand up bilateral lower leg + edema noted. call light w/in reach.
[2022-10-19] MEDS: ATORVASTATIN 10 MG TABLET PO SCH (20:29)
[2022-10-19] MEDS: MELATONIN 3 MG TABLET PO SCH (20:29)
[2022-10-19] MEDS: DOCUSATE SODIUM 100 MG CAPSULE PO SCH (20:29)
[2022-10-19 20:41] VITALS: BP 96/54
[2022-10-19] MEDS: CEFTRIAXONE 1 G in IV DEXTROSE 5% 50 ML IV SCH (20:41)
[2022-10-20 04:37] VITALS: BP 94/60
--- NOTE | 2022-10-20 05:07 | NUR ---
Nsg: Remain calm and cooperative. continue on 02 @ 2l/min sating 98% to 99%. assisted with adl's. kept clean and dry. denies pain or discomfort at this time. call light w/in reach.
[2022-10-20] MEDS: LEVOTHYROXINE SODIUM 50 MCG TABLET PO SCH (06:18)
[2022-10-20] MEDS: PANTOPRAZOLE SODIUM 40 MG TABLET.DR PO SCH (06:18)
[2022-10-20 07:17] LABS: HEMATOCRIT 39.4 % (31.2-41.9); MEAN CORPUSCULAR HEMOGLOBIN 29.5 uug (24.7-32.8); MEAN CORPUSCULAR VOLUME 91.7 fL (75.5-95.3); PLATELET COUNT (AUTO) 234 K/uL (179-408)
[2022-10-20 07:42] LABS: CREATININE 0.8 mg/dL (0.6-1.3); PHOSPHOROUS 3.8 mg/dL (2.5-4.9); POTASSIUM 3.9 mmol/L (3.5-5.1)
[2022-10-20] MEDS: MELOXICAM 7.5 MG TABLET PO SCH (08:09)
[2022-10-20] MEDS: DIVALPROEX 250 MG TABLET.DR PO SCH ×2 (08:09→16:30)
[2022-10-20] MEDS: GABAPENTIN 300 MG CAPSULE PO SCH ×3 (08:09→16:30)
[2022-10-20] MEDS: DIVALPROEX 125 MG TABLET.DR PO SCH (08:09)
[2022-10-20 11:56] VITALS: BP 112/66
[2022-10-20 16:02] VITALS: BP 105/61
[2022-10-20 19:45] VITALS: BP 113/64
[2022-10-20] MEDS: ATORVASTATIN 10 MG TABLET PO SCH (20:33)
[2022-10-20] MEDS: DOCUSATE SODIUM 100 MG CAPSULE PO SCH (20:33)
[2022-10-20] MEDS: MELATONIN 3 MG TABLET PO SCH (20:33)
[2022-10-20] MEDS: CEFTRIAXONE 1 G in IV DEXTROSE 5% 50 ML IV SCH (21:55)
[2022-10-21] MEDS: LORAZEPAM 2 MG/1 ML VIAL IV PRN (02:20)
[2022-10-21 05:06] VITALS: BP 106/67
[2022-10-21] MEDS: LEVOTHYROXINE SODIUM 50 MCG TABLET PO SCH (06:08)
[2022-10-21] MEDS: PANTOPRAZOLE SODIUM 40 MG TABLET.DR PO SCH (06:08)
--- NOTE | 2022-10-21 06:16 | NUR ---
PATIENT ASLEEP IN BED. SLEPT WELL THROUGHOUT THE NIGHT. VS WNL. BED ALARM ON. CALL LIGHT IN REACH. ALL NEEDS ATTENDED. WILL CONTINUE TO MONITOR AND ASSESS.
[2022-10-21] MEDS: DIVALPROEX 250 MG TABLET.DR PO SCH ×2 (08:02→16:14)
[2022-10-21] MEDS: GABAPENTIN 300 MG CAPSULE PO SCH ×3 (08:02→16:14)
[2022-10-21] MEDS: MELOXICAM 7.5 MG TABLET PO SCH (08:02)
[2022-10-21] MEDS: DIVALPROEX 125 MG TABLET.DR PO SCH (08:02)
[2022-10-21 12:00] VITALS: BP 118/65
[2022-10-21] MEDS ORDERED: POLY17PO4 PO (13:14)
[2022-10-21] MEDS ORDERED: DOCU-141 PO (13:14)
[2022-10-21] MEDS ORDERED: HYDR-3972 PO (13:14)
[2022-10-21] MEDS ORDERED: TEMA15CA PO (13:14)
[2022-10-21 16:00] VITALS: BP 130/78
--- NOTE | 2022-10-21 16:47 | NUR ---
dc orders received noted and carried out,dc instruction given to the ambulances ,dc heplock per md orders.long-term called for the report leave the massage no body ans, pt left the facility via ambulances in stable condition
== END 2022-10-21 17:01 | DRG 871 ==
LOC: ER 19:48 → MEDSURG3 23:18
PROVIDERS: ADMIT Internal Medicine; ATTEND Internal Medicine
DX: A41.9 Sepsis, unspecified organism (principal); G92.8 Other toxic encephalopathy; N39.0 Urinary tract infection, site not specified; K80.00 Calculus of gallbladder with acute cholecystitis without obstruction; D68.59 Other primary thrombophilia; R19.00 Intra-abdominal and pelvic swelling, mass and lump, unspecified site; I25.10 Atherosclerotic heart disease of native coronary artery without angina pectoris; E66.9 Obesity, unspecified; Z68.32 Body mass index [BMI] 32.0-32.9, adult; J45.909 Unspecified asthma, uncomplicated; Z74.09 Other reduced mobility; Z86.16 Personal history of COVID-19; M19.90 Unspecified osteoarthritis, unspecified site; K44.9 Diaphragmatic hernia without obstruction or gangrene; K42.9 Umbilical hernia without obstruction or gangrene; F20.9 Schizophrenia, unspecified; F32.A Depression, unspecified; R73.03 Prediabetes; G62.9 Polyneuropathy, unspecified; E78.5 Hyperlipidemia, unspecified; F03.90 Unspecified dementia, unspecified severity, without behavioral disturbance, psychotic disturbance, mood disturbance, and anxiety; E03.9 Hypothyroidism, unspecified; R10.84 Generalized abdominal pain; R94.31 Abnormal electrocardiogram [ECG] [EKG]; K76.89 Other specified diseases of liver; D39.11 Neoplasm of uncertain behavior of right ovary; Z20.822 Contact with and (suspected) exposure to COVID-19
CPT/HCPCS: 36415; 70450; 71045; 71250; 76856; 83690; 83735; 84100; 84443; 85025; 93005; A4663; C1758; G0378; J0696; J2060; J3490; J7040; Q9967